=== PATIENT | male | born 1960 | race Caucasian/White ===

== ENCOUNTER 2016-10-01 12:41 | Outpatient (CLI) | payer OTHER ==
[~2016-10-01 12:41] MED LIST: ALBUTEROL HFA60 DOSE IN; ALDACTONE25 MG PO; AMITRIPTYLINE H10 MG PO; BUPROPION HCL150 M3 PO; CARISOPRODOL350 MG PO; CARVEDILOL6.25 MG PO; CLARITIN5 MG PO; CO Q 10100 MG PO; DIAZEPAM5 MG PO; EFFEXOR25 MG PO; HUMALIN R100 UNITS/ SC; ISOSORBIDE MONO60 MG PO; LANTUS SOL100 UNITS/ SC; MELATONIN1 TA2 PO; METOLAZONE5 MG PO; MINOCIN100 MG PO; MIRAPEX0.25 MG PO; MULTI FOR HER PO; NEURONTIN300 MG PO; NIACIN ER500 MG PO; NITROSTAT0.4 MG SL; O2; OMEGA 31200 MG PO; OXYCODONE HCL5 MG PO; OXYCONTIN PO; PRILOSEC20 MG PO; PROSTATE HEALTH PO; SLOW-MAG PO; TOPAMAX50 MG PO; TORSEMIDE20 MG PO; VITAMIN C500 M1 PO; VITAMIN D-31000 UNIT PO; WELLBUTRIN SR150 MG PO; [UNRECOGNIZED DRUG - OTHER] PO
[2016-10-01 13:32] VITALS: BP 137/78
[2016-10-01 15:02] VITALS: BP 107/71
== END 2016-10-01 16:00 | disposition home or self-care (01) ==
LOC: SDP SRH 12:41 → SCU SRH 12:47 → SDP SRH 13:00
PROC: 059Y3ZZ Drainage of Upper Vein, Percutaneous Approach (ICD-10-PCS; principal; 2016-10-01)
DX: D75.1 Secondary polycythemia (principal)
CPT/HCPCS: 29240

== ENCOUNTER 2017-02-07 08:41 | Emergency (ER) | payer OTHER ==
--- NOTE | 2017-02-07 12:40 | ED NURSING NOTES ---
Clinical Report - Nurses [facility] [address] [place] [address] 02/07/2017 8:41 Patient: EMERALD BIGGS TRIAGE Triage time 0841. Acuity: LEVEL 1. Chief Complaint: (Found down at home. Last seen normal at approx 0300 by his . She found him unresponsive at approx 0730. She called the medics and they began CPR at 0747. Pt arrived in the ED at 0841.). DELMY COMA SCORE: [place] Coma Scale: 3- eyes do not open (1); best verbal response- none (1); best motor response- none (1). --09:19 Benny Figueroa R.N. 08:44 02/07/17. BP: 0/0. HR: 0. RR: 0. O2 saturation: 0%. Temp: deferred. End tidal CO2: 9 mmHg. Pain level now: 0/10. --09:19 Benny Figueroa R.N. Weight: 104.3 kg estimated. Height/Length: 72 inches Estimated. BMI: 31.2. --08:41 Benny Figueroa R.N. Medications Albuterol Sulfate Inhalation. Amitriptyline HCl Oral 80 mg at hs. BuPROPion HCl Oral 300 mg daily. Carisoprodol Oral 350 mg, q4-6hrs, then 2 at hs. Carvedilol Oral (Tablet 6.25 mg) 1 tablet, bid. CoQ10 Oral (Capsule 100 mg) (x1 a day). Diazepam Oral 5 mg, q6hrs prn anxiety. EpiPen 2-David Injection, prn. Gabapentin Oral 1200 mg q8hrs. Humulog insulin 20-50 units sq AC. Isosorbide MN ER 60 mg 2 tabs each AM. Lantus. Lantus Subcutaneous. Loratadine Oral. Magnesium Oxide Oral (Tablet 400 mg) 1 tablet. Mature multivitamin and minerals 3mg (x1 at bedtime). Melatonin Oral (Tablet 3 mg) 2 tablets (at bedtime). Metolazone Oral 2.5 mg (1 TAB 30 MIN BEFORE TORSEMIDE prn DAILY WEIGHT GAIN ABOBE 3 POUNDS). Minocycline Hcl Oral (Capsule 50 mg) 1 capsule (1 CAP DAILY UNLESS "FLARE UP" THE 1 CAP TWICE WOLFE). Niacin Oral (Tablet 500 mg) 1 tablet, daily. Nitrostat Sublingual (Tablet Sublingual 0.4 mg) (1 tab under tongue every 5 min prn chest pain). [place] 3 Oral (Capsule 1200 mg). Omeprazole Oral 20 mg, 2x a day. OxyCODONE HCl Oral 5 mg (1 tab needed for break through pain). OxyCONTIN Oral 40 mg (1 tab every 12 hours prn pain). Oxygen home. --09:10 Benny Figueroa R.N. Potassium CL 20MEQ ER tab (2 tabs in AM and 2 tabs HS daily). Pramipexole 0.5 mg (1 tab at bedtime). Prostate Health Oral (1 soft gel daily). Spironolactone Oral (Tablet 25 mg) 1/2 tablet (@ bedtime). Testost cyp 1ml, 200mg,ml,inj (inject IM 1 ml (200mg) each week alternating inj site). Torsemide Oral 80mg (4 tabs 30 min after Metolazone each morning). Venlafaxine HCl Oral 150 mg, daily. Vitamin c Oral (Tablet 1000 mg) 1 tablet (twice a day). Vitamin D3 Oral (Tablet 1000 unit) 1 tablet (x2 daily). --09:10 Benny Figueroa R.N. Allergies Bees. Morphine and Related. Naproxen. Statins. --09:10 Benny Figueroa R.N. History Arrived by EMS, and (Medic 46). Historian: EMS. --09:19 Benny Figueroa R.N. PROBLEMS: Changed Mental Status. Traumatic spine injury. Fibromyalgia. Diastolic heart failure. Sleep Apnea. Chronic lymphoid leukemia, disease. Anxiety Reaction. Depression. Traumatic Brain Injury. Myofascial Strain. Fall. Contusion. Vein thrombosis behind right knee. Angina. Closed head injury. Concussions . Neck Pain. Hypercholesterolemia. Gastroesophageal Reflux Disease. Diabetes Mellitus. Hypertension. Congestive Heart Failure. Back Pain. Hypoglycemia. --09:09 Benny Figueroa R.N. ADDITIONAL SURGERIES: Back Surgery. --09:10 Benny Figueroa R.N. Interventions To treatment room. --09:19 Benny Figueroa R.N. PHYSICAL ASSESSMENT late entry -08:44. ( Pulseless, no spontaneous respirations, unresponsive, asystole.). --10:10 Benny Figueroa R.N. NURSING PROGRESS NOTES Patient ready for evaluation- chart flagged and ED physician notified. ( CPR in progress, code team at the bedside). --10:13 Benny Figueroa R.N. late entry -11:10. ( Pt's stated that the family is finished viewing and it is ok for him to be picked up by [employer] ([phone])). --11:41 Benny Figueroa R.N. CPR Flowsheet late entry -09:00. CPR started (0747 (in the field)). Notified about CPR (0831). ED physician arrived in room (Sarmiento). Anesthesiologist arrived in room. Code bakery team leader arrived in room. Primary nurse arrived in room. Secondary nurse arrived in room. ED medical supply technician arrived in room. Respiratory therapist arrived in room. Nursing electrician supervisor substation arrived in room. Pharmacist arrived in room. Hoop Punch Operator Helper arrived in room. Presenting rhythm is asystole. Airway patent. Airway suctioned. Intubation performed by EMS (see report). Endotracheal tube secured. No spontaneous respirations. Ventilated: respiratory efforts assisted- with bag-valve mask. Breath sounds equal. No, central, peripheral pulse. Compressions performed with good pulse. The patients skin is cold and color is cyanotic and mottled. Capillary refill is greater than four seconds. Rhythm is asystole. Pupils fixed and dilated. [place] Coma Scale: 3- eyes do not open (1); best verbal response- none (1); best motor response- none (1). Pt is cyanotic from mid chest up, skin is cold. Efforts stopped at 0844. --11:49 Benny Figueroa R.N. DISPOSITION / DISCHARGE Departure time: 1230. Condition at departure: . ( Picked up by home). --12:46 Benny Figueroa R.N. 12:43 02/07/17. BP: deferred. HR: deferred. RR: deferred. O2 saturation: deferred. Temp: deferred. End tidal CO2: deferred. Pain level now deferred. --12:46 Benny Figueroa R.N. Locked/Released at 02/07/2017 14:30 by Benny Figueroa R.N.
--- NOTE | 2017-02-07 12:40 | ED CLINICAL REPORT ---
Clinical Report - Physicians/Mid Levels [facility] [address] [place] [address] 02/07/2017 8:41 Patient: EMERALD BIGGS Time Seen: 08:42; upon arrival, initial patient contact. Arrived- By ambulance. Historian- EMS personnel. History unobtainable due to patient's unresponsiveness. HISTORY OF PRESENT ILLNESS Chief Complaint: CARDIAC ARREST and FOUND UNRESPONSIVE. 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 Arrived with CPR in progress; worsening. Did not regain a pulse or begin breathing spontaneously. The patient was found unresponsive. Down time before CPR (unknown). Paramedics findings: The patient was apneic and pulseless. Rhythm was asystole. Prehospital treatment: Patient was defibrillated once. Intubation was performed. He was ventilated. Compressions performed. IV fluids given. Given epinephrine (many doses). Duration of prehospital treatment: 45 minutes about. Recent medical care: Not recently seen/assessed. REVIEW OF SYSTEMS Unobtainable secondary to condition. PAST HISTORY ( Traumatic spine injury. Fibromyalgia. Diastolic heart failure. Sleep Apnea. Chronic lymphoid leukemia, disease. Anxiety Reaction. Depression. Traumatic Brain Injury. Myofascial Strain. Fall. Contusion. Vein thrombosis behind right knee. Angina. Closed head injury. Concussions . Neck Pain. Hypercholesterolemia. Gastroesophageal Reflux Disease. Diabetes Mellitus. Hypertension. Congestive Heart Failure. Back Pain. Hypoglycemia. Immunizations. Additional Surgeries: Back Surgery.). SOCIAL HISTORY Smoker - current status unknown. ADDITIONAL NOTES The nursing notes have been reviewed. PHYSICAL EXAM Vital Signs: 02/07/2017 08:44 BP: 0/0. HR: 0. RR: 0. O2 saturation: 0%. End tidal CO2: 9 mmHg. Pain level now: 0/10. Have been reviewed as abnormal. Appearance: Ongoing CPR. Unresponsive. ENT: (Intubated). Neck: Short neck. CVS: Chest compressions performed. No spontaneous pulse. No heart sounds. Respiratory: Ventilated. No spontaneous respirations. Endotracheal tube in place. Skin: Cyanosis. Neuro: Unresponsive. CLINICAL IMPRESSION Cardiac arrest secondary to asystole. (Electronically signed by Ji Sarmiento Dr. 02/07/2017 9:35)
--- NOTE | 2017-02-07 12:40 | ED CLINICAL REPORT ---
Clinical Report - Physicians/Mid Levels [facility] [address] [place] [address] 02/07/2017 8:41 Patient: EMERALD BIGGS Time Seen: 08:42; upon arrival, initial patient contact. Arrived- By ambulance. Historian- EMS personnel. History unobtainable due to patient's unresponsiveness. HISTORY OF PRESENT ILLNESS Chief Complaint: CARDIAC ARREST and FOUND UNRESPONSIVE. 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 Arrived with CPR in progress; worsening. Did not regain a pulse or begin breathing spontaneously. The patient was found unresponsive. Down time before CPR (unknown). Paramedics findings: The patient was apneic and pulseless. Rhythm was asystole. Prehospital treatment: Patient was defibrillated once. Intubation was performed. He was ventilated. Compressions performed. IV fluids given. Given epinephrine (many doses). Duration of prehospital treatment: 45 minutes about. Recent medical care: Not recently seen/assessed. REVIEW OF SYSTEMS Unobtainable secondary to condition. PAST HISTORY ( Traumatic spine injury. Fibromyalgia. Diastolic heart failure. Sleep Apnea. Chronic lymphoid leukemia, disease. Anxiety Reaction. Depression. Traumatic Brain Injury. Myofascial Strain. Fall. Contusion. Vein thrombosis behind right knee. Angina. Closed head injury. Concussions . Neck Pain. Hypercholesterolemia. Gastroesophageal Reflux Disease. Diabetes Mellitus. Hypertension. Congestive Heart Failure. Back Pain. Hypoglycemia. Immunizations. Additional Surgeries: Back Surgery.). SOCIAL HISTORY Smoker - current status unknown. ADDITIONAL NOTES The nursing notes have been reviewed. PHYSICAL EXAM Vital Signs: 02/07/2017 08:44 BP: 0/0. HR: 0. RR: 0. O2 saturation: 0%. End tidal CO2: 9 mmHg. Pain level now: 0/10. Have been reviewed as abnormal. Appearance: Ongoing CPR. Unresponsive. ENT: (Intubated). Neck: Short neck. CVS: Chest compressions performed. No spontaneous pulse. No heart sounds. Respiratory: Ventilated. No spontaneous respirations. Endotracheal tube in place. Skin: Cyanosis. Neuro: Unresponsive. CLINICAL IMPRESSION Cardiac arrest secondary to asystole. (Electronically signed by Ji Sarmiento Dr. 02/07/2017 9:35)
--- NOTE | 2017-02-07 12:40 | ED NURSING NOTES ---
Clinical Report - Nurses [facility] [address] [place] [address] 02/07/2017 8:41 Patient: EMERALD BIGGS TRIAGE Triage time 0841. Acuity: LEVEL 1. Chief Complaint: (Found down at home. Last seen normal at approx 0300 by his . She found him unresponsive at approx 0730. She called the medics and they began CPR at 0747. Pt arrived in the ED at 0841.). DELMY COMA SCORE: [place] Coma Scale: 3- eyes do not open (1); best verbal response- none (1); best motor response- none (1). --09:19 Benny Figueroa R.N. 08:44 02/07/17. BP: 0/0. HR: 0. RR: 0. O2 saturation: 0%. Temp: deferred. End tidal CO2: 9 mmHg. Pain level now: 0/10. --09:19 Benny Figueroa R.N. Weight: 104.3 kg estimated. Height/Length: 72 inches Estimated. BMI: 31.2. --08:41 Benny Figueroa R.N. Medications Albuterol Sulfate Inhalation. Amitriptyline HCl Oral 80 mg at hs. BuPROPion HCl Oral 300 mg daily. Carisoprodol Oral 350 mg, q4-6hrs, then 2 at hs. Carvedilol Oral (Tablet 6.25 mg) 1 tablet, bid. CoQ10 Oral (Capsule 100 mg) (x1 a day). Diazepam Oral 5 mg, q6hrs prn anxiety. EpiPen 2-David Injection, prn. Gabapentin Oral 1200 mg q8hrs. Humulog insulin 20-50 units sq AC. Isosorbide MN ER 60 mg 2 tabs each AM. Lantus. Lantus Subcutaneous. Loratadine Oral. Magnesium Oxide Oral (Tablet 400 mg) 1 tablet. Mature multivitamin and minerals 3mg (x1 at bedtime). Melatonin Oral (Tablet 3 mg) 2 tablets (at bedtime). Metolazone Oral 2.5 mg (1 TAB 30 MIN BEFORE TORSEMIDE prn DAILY WEIGHT GAIN ABOBE 3 POUNDS). Minocycline Hcl Oral (Capsule 50 mg) 1 capsule (1 CAP DAILY UNLESS "FLARE UP" THE 1 CAP TWICE WOLFE). Niacin Oral (Tablet 500 mg) 1 tablet, daily. Nitrostat Sublingual (Tablet Sublingual 0.4 mg) (1 tab under tongue every 5 min prn chest pain). [place] 3 Oral (Capsule 1200 mg). Omeprazole Oral 20 mg, 2x a day. OxyCODONE HCl Oral 5 mg (1 tab needed for break through pain). OxyCONTIN Oral 40 mg (1 tab every 12 hours prn pain). Oxygen home. --09:10 Benny Figueroa R.N. Potassium CL 20MEQ ER tab (2 tabs in AM and 2 tabs HS daily). Pramipexole 0.5 mg (1 tab at bedtime). Prostate Health Oral (1 soft gel daily). Spironolactone Oral (Tablet 25 mg) 1/2 tablet (@ bedtime). Testost cyp 1ml, 200mg,ml,inj (inject IM 1 ml (200mg) each week alternating inj site). Torsemide Oral 80mg (4 tabs 30 min after Metolazone each morning). Venlafaxine HCl Oral 150 mg, daily. Vitamin c Oral (Tablet 1000 mg) 1 tablet (twice a day). Vitamin D3 Oral (Tablet 1000 unit) 1 tablet (x2 daily). --09:10 Benny Figueroa R.N. Allergies Bees. Morphine and Related. Naproxen. Statins. --09:10 Benny Figueroa R.N. History Arrived by EMS, and (Medic 46). Historian: EMS. --09:19 Benny Figueroa R.N. PROBLEMS: Changed Mental Status. Traumatic spine injury. Fibromyalgia. Diastolic heart failure. Sleep Apnea. Chronic lymphoid leukemia, disease. Anxiety Reaction. Depression. Traumatic Brain Injury. Myofascial Strain. Fall. Contusion. Vein thrombosis behind right knee. Angina. Closed head injury. Concussions . Neck Pain. Hypercholesterolemia. Gastroesophageal Reflux Disease. Diabetes Mellitus. Hypertension. Congestive Heart Failure. Back Pain. Hypoglycemia. --09:09 Benny Figueroa R.N. ADDITIONAL SURGERIES: Back Surgery. --09:10 Benny Figueroa R.N. Interventions To treatment room. --09:19 Benny Figueroa R.N. PHYSICAL ASSESSMENT late entry -08:44. ( Pulseless, no spontaneous respirations, unresponsive, asystole.). --10:10 Benny Figueroa R.N. NURSING PROGRESS NOTES Patient ready for evaluation- chart flagged and ED physician notified. ( CPR in progress, code team at the bedside). --10:13 Benny Figueroa R.N. late entry -11:10. ( Pt's stated that the family is finished viewing and it is ok for him to be picked up by & [employer] ([phone])). --11:41 Benny Figueroa R.N. CPR Flowsheet late entry -09:00. CPR started (0747 (in the field)). Notified about CPR (0831). ED physician arrived in room (Sarmiento). Anesthesiologist arrived in room. Code division leader arrived in room. Primary nurse arrived in room. Secondary nurse arrived in room. ED meteorological technician arrived in room. Respiratory therapist arrived in room. Nursing supervisor pole yard arrived in room. Pharmacist arrived in room. Fire Systems Inspector arrived in room. Presenting rhythm is asystole. Airway patent. Airway suctioned. Intubation performed by EMS (see report). Endotracheal tube secured. No spontaneous respirations. Ventilated: respiratory efforts assisted- with bag-valve mask. Breath sounds equal. No, central, peripheral pulse. Compressions performed with good pulse. The patients skin is cold and color is cyanotic and mottled. Capillary refill is greater than four seconds. Rhythm is asystole. Pupils fixed and dilated. [place] Coma Scale: 3- eyes do not open (1); best verbal response- none (1); best motor response- none (1). Pt is cyanotic from mid chest up, skin is cold. Efforts stopped at 0844. --11:49 Benny Figueroa R.N. DISPOSITION / DISCHARGE Departure time: 1230. Condition at departure: . ( Picked up by home). --12:46 Benny Figueroa R.N. 12:43 02/07/17. BP: deferred. HR: deferred. RR: deferred. O2 saturation: deferred. Temp: deferred. End tidal CO2: deferred. Pain level now deferred. --12:46 Benny Figueroa R.N. Locked/Released at 02/07/2017 14:30 by Benny Figueroa R.N.
--- NOTE | 2017-02-07 14:31 | ED MED RECONCILIATION SUMMARY ---
Patient: EMERALD BIGGS Medication Reconciliation Report [facility] VisitID: [id number] [address] [place] [address] 57y, M Registration Date/Time: 02/07/2017 Weight: 104.3 kg Height/Length: 72 in. BMI: 31.2 ALLERGIES: Bees, Morphine and Related, Naproxen, Statins The patient's Home Medications are listed below: THE FOLLOWING MEDICATIONS NEED TO BE RECONCILED: Albuterol Sulfate Inhalation Amitriptyline HCl Oral 80 mg at hs BuPROPion HCl Oral 300 mg daily Carisoprodol Oral 350 mg, q4-6hrs, then 2 at hs Carvedilol Oral (6.25 mg) 1 tablet, bid CoQ10 Oral (100 mg), x1 a day Diazepam Oral 5 mg, q6hrs prn anxiety EpiPen 2-David Injection, prn Gabapentin Oral 1200 mg q8hrs Humulog insulin 20-50 units sq AC Isosorbide MN ER 60 mg 2 tabs each AM Lantus Lantus Subcutaneous Loratadine Oral Magnesium Oxide Oral (400 mg) 1 tablet Mature multivitamin and minerals 3mg, x1 at bedtime Melatonin Oral (3 mg) 2 tablets, at bedtime Metolazone Oral 2.5 mg, 1 TAB 30 MIN BEFORE TORSEMIDE prn DAILY WEIGHT GAIN ABOBE 3 POUNDS Minocycline Hcl Oral (50 mg) 1 capsule, 1 CAP DAILY UNLESS "FLARE UP" THE 1 CAP TWICE WOLFE Niacin Oral (500 mg) 1 tablet, daily Nitrostat Sublingual (0.4 mg), 1 tab under tongue every 5 min prn chest pain [place] 3 Oral (1200 mg) Omeprazole Oral 20 mg, 2x a day OxyCODONE HCl Oral 5 mg, 1 tab needed for break through pain OxyCONTIN Oral 40 mg, 1 tab every 12 hours prn pain Oxygen home Potassium CL 20MEQ ER tab, 2 tabs in AM and 2 tabs HS daily Pramipexole 0.5 mg, 1 tab at bedtime Prostate Health Oral, 1 soft gel daily Spironolactone Oral (25 mg) 1/2 tablet, @ bedtime Testost cyp 1ml, 200mg,ml,inj, inject IM 1 ml (200mg) each week alternating inj site Torsemide Oral 80mg, 4 tabs 30 min after Metolazone each morning Venlafaxine HCl Oral 150 mg, daily Vitamin c Oral (1000 mg) 1 tablet, twice a day Vitamin D3 Oral (1000 unit) 1 tablet, x2 daily The source(s) of the original Home Medication information: Not obtained. The following Medications were given to the patient in the Emergency Department: None. The following Medications were prescribed to the patient: None.
--- NOTE | 2017-02-07 14:31 | ED MAR SUMMARY ---
..... Medication Administration Record [facility] [address], [place] [id number] Patient: EMERALD BIGGS Visit ID: [id number] 57y, M Weight: 104.3 kg Height/Length: 72 in BMI: 31.2 ALLERGIES: Bees, Morphine and Related, Naproxen, Statins
--- NOTE | 2017-02-07 14:31 | ED MAR SUMMARY ---
..... Medication Administration Record [facility] [address], [place] [id number] Patient: EMERALD BIGGS Visit ID: [id number] 57y, M Weight: 104.3 kg Height/Length: 72 in BMI: 31.2 ALLERGIES: Bees, Morphine and Related, Naproxen, Statins
--- NOTE | 2017-02-07 14:31 | ED DISCHARGE INSTRUCTIONS ---
Patient: EMERALD BIGGS General Instructions [facility] VisitID: [id number] [address] [place] [address] 57y, M Registration Date/Time: 02/07/2017 Cardiac arrest secondary to asystole. (Electronically signed by Ji Sarmiento Dr. 02/07/2017 9:35)
--- NOTE | 2017-02-07 14:31 | ED DISCHARGE INSTRUCTIONS ---
Patient: EMERALD BIGGS General Instructions [facility] VisitID: [id number] [address] [place] [address] 57y, M Registration Date/Time: 02/07/2017 Cardiac arrest secondary to asystole. (Electronically signed by Ji Sarmiento Dr. 02/07/2017 9:35)
--- NOTE | 2017-02-07 14:31 | ED MED RECONCILIATION SUMMARY ---
Patient: EMERALD BIGGS Medication Reconciliation Report [facility] VisitID: [id number] [address] [place] [address] 57y, M Registration Date/Time: 02/07/2017 Weight: 104.3 kg Height/Length: 72 in. BMI: 31.2 ALLERGIES: Bees, Morphine and Related, Naproxen, Statins The patient's Home Medications are listed below: THE FOLLOWING MEDICATIONS NEED TO BE RECONCILED: Albuterol Sulfate Inhalation Amitriptyline HCl Oral 80 mg at hs BuPROPion HCl Oral 300 mg daily Carisoprodol Oral 350 mg, q4-6hrs, then 2 at hs Carvedilol Oral (6.25 mg) 1 tablet, bid CoQ10 Oral (100 mg), x1 a day Diazepam Oral 5 mg, q6hrs prn anxiety EpiPen 2-David Injection, prn Gabapentin Oral 1200 mg q8hrs Humulog insulin 20-50 units sq AC Isosorbide MN ER 60 mg 2 tabs each AM Lantus Lantus Subcutaneous Loratadine Oral Magnesium Oxide Oral (400 mg) 1 tablet Mature multivitamin and minerals 3mg, x1 at bedtime Melatonin Oral (3 mg) 2 tablets, at bedtime Metolazone Oral 2.5 mg, 1 TAB 30 MIN BEFORE TORSEMIDE prn DAILY WEIGHT GAIN ABOBE 3 POUNDS Minocycline Hcl Oral (50 mg) 1 capsule, 1 CAP DAILY UNLESS "FLARE UP" THE 1 CAP TWICE WOLFE Niacin Oral (500 mg) 1 tablet, daily Nitrostat Sublingual (0.4 mg), 1 tab under tongue every 5 min prn chest pain [place] 3 Oral (1200 mg) Omeprazole Oral 20 mg, 2x a day OxyCODONE HCl Oral 5 mg, 1 tab needed for break through pain OxyCONTIN Oral 40 mg, 1 tab every 12 hours prn pain Oxygen home Potassium CL 20MEQ ER tab, 2 tabs in AM and 2 tabs HS daily Pramipexole 0.5 mg, 1 tab at bedtime Prostate Health Oral, 1 soft gel daily Spironolactone Oral (25 mg) 1/2 tablet, @ bedtime Testost cyp 1ml, 200mg,ml,inj, inject IM 1 ml (200mg) each week alternating inj site Torsemide Oral 80mg, 4 tabs 30 min after Metolazone each morning Venlafaxine HCl Oral 150 mg, daily Vitamin c Oral (1000 mg) 1 tablet, twice a day Vitamin D3 Oral (1000 unit) 1 tablet, x2 daily The source(s) of the original Home Medication information: Not obtained. The following Medications were given to the patient in the Emergency Department: None. The following Medications were prescribed to the patient: None.
== END 2017-02-07 12:30 | disposition expired ==
LOC: ED SRH 08:41
DX: I46.2 Cardiac arrest due to underlying cardiac condition (principal); I11.0 Hypertensive heart disease with heart failure; I50.9 Heart failure, unspecified; E11.9 Type 2 diabetes mellitus without complications